=== PATIENT | female | born 1985 | race Caucasian/White ===

== ENCOUNTER 2024-07-27 09:02 | Emergency (ER) | payer OTHER ==
[~2024-07-27] VITALS: Ht 162.5 cm; Wt 71.7 kg
[~2024-07-27 09:02] MED LIST: ATARAX,VISTARIL50 MG PO; BENTYL10 MG PO; CLINDAMYCIN150 MG PO; FLEXERIL5 MG PO; KENALOG0.1% TP; MACROBID100 M1 PO; PEPCID20 MG PO; SYNTHROID0.1 MG PO; ULTRAM50 MG PO; VISTARIL25 MG PO; VISTARIL50 MG PO; ZANTAC 150150 MG PO; ZOFRAN ODT4 MG SL
[2024-07-27] MEDS ORDERED: OZEMPIC2 MG/0.71 SQ (09:09)
[2024-07-27] MEDS ORDERED: VISTARIL25 MG PO (09:10)
[2024-07-27 10:12] LABS: BASO # 0.1 10*3/uL (0.0-0.1); BASO % 1.1 % (0.0-1.0); EOS % 0.7 % (1.0-4.0); MEAN CELL VOLUME 86.9 fl (81.0-99.0); MEAN CORPUSCULAR HGB 28.8 pg (27.0-31.0); MEAN CORPUSCULAR HGB CONC 33.2 g/dl (33.0-37.0); MEAN PLATELET VOLUME 9.9 fl (9.6-12.3); MONO # 0.4 10*3/uL (0.1-1.0); MONO % 6.4 % (3.0-9.0); NEUT # 3.9 10*3/uL (2.3-7.9); PLATELET COUNT AUTOMATED 306 10*3/uL (130-400); RED BLOOD COUNT 4.72 10*6/uL (4.10-5.10); RED CELL DISTRI WIDTH 12.3 % (0-14.5); WHITE BLOOD COUNT 5.6 10*3/uL (4.8-10.8)
[2024-07-27 10:37] LABS: BUN 9 mg/dl (9-23); CHLORIDE 103 mmol/L (98-107); POTASSIUM 4.1 mmol/L (3.4-5.1)
[2024-07-27] MEDS ORDERED: MG-AL HYDROXIDE/SIMETICONE 30 ML UDC PO STA (10:54)
[2024-07-27] MEDS ORDERED: Lidocaine Hydrochloride 15 ML UDC PO STA (10:54)
[2024-07-27] MEDS ORDERED: Dicyclomine Hydrochloride 20 MG/10 ML OSYR PO STA (10:54)
[2024-07-27] MEDS ORDERED: ACID REDUCER10 MG PO (10:58)
== END 2024-07-27 11:38 | disposition home or self-care (01) ==
LOC: ED 09:02
PROVIDERS: Internal Medicine
DX: F41.9 Anxiety disorder, unspecified (principal); K21.9 Gastro-esophageal reflux disease without esophagitis; Z88.6 Allergy status to analgesic agent

== ENCOUNTER 2025-06-17 20:01 | Emergency (ER) | payer OTHER ==
[~2025-06-17] VITALS: Ht 165.1 cm; Wt 77.1 kg
[~2025-06-17 20:01] MED LIST changes: +ACID REDUCER10 MG PO; +OZEMPIC2 MG/0.71 SQ
[2025-06-17] MEDS ORDERED: predniSONE 20 MG TAB PO ONE (20:20)
[2025-06-17] MEDS ORDERED: PREDNISONE50 MG PO (20:21)
== END 2025-06-17 20:33 | disposition home or self-care (01) ==
LOC: ED 20:01
DX: M54.31 Sciatica, right side (principal); F41.9 Anxiety disorder, unspecified; E03.9 Hypothyroidism, unspecified; Z88.8 Allergy status to other drugs, medicaments and biological substances